=== PATIENT | female | born 1950 | race African-American/Black ===

== ENCOUNTER 2020-08-15 10:37 | Emergency (ER) | payer MEDICARE, BC, SELFPAY ==
[2020-08-15 10:46] VITALS: BP 152/84; PULSE 63; RESP 16; TEMP 36.9; O2SAT 100
--- NOTE | 2020-08-15 11:20 | ED.SKABFB ---
HPI - Skin/Abscess/Foreign Bdy General Chief complaint: Skin/Abscess/Foreign Body Stated complaint: Left Eye swollen/red/bites on neck and chest Time Seen by Provider: 08/15/20 11:03 Source: patient and RN notes reviewed Mode of arrival: ambulatory Limitations: no limitations History of Present Illness HPI narrative: Patient presents today complaining of severely pruritic insect bites to her left eyelid, left neck, and left chest that were sustained last night. She believes that she has bedbugs from her hotel room. Her daughter was able to get pictures of bugs within the mattress. She did take some Benadryl for itching without much relief.Denies any additional symptoms. States she was wearing a nightgown last night. She does not have any bites on her arms, abdomen, or legs. MD complaint: insect bite/sting Related Data Home Medications Medication Instructions Recorded Confirmed atenolol 50 mg PO BID 08/15/20 08/15/20 atorvastatin 20 mg PO DAILY 08/15/20 08/15/20 famotidine [Pepcid] 20 mg PO BID 08/15/20 08/15/20 felodipine 10 mg PO DAILY 08/15/20 08/15/20 hydrochlorothiazide 25 mg PO DAILY 08/15/20 08/15/20 infliximab [Remicade] See Rx Instructions .ROUTE .COMPLEX 08/15/20 08/15/20 potassium chloride 20 meq PO DAILY 08/15/20 08/15/20 Allergies Allergy/AdvReac Type Severity Reaction Status Date / Time levofloxacin [From Levaquin] Allergy Rash Verified 08/15/20 10:56 morphine Allergy Rash Verified 08/15/20 10:56 Sulfa (Sulfonamide Allergy Rash Verified 08/15/20 10:56 Antibiotics) Review of Systems Review of Systems: Narrative: CONSTITUTIONAL: Denies body aches, fever, chills, or sweats. EYES: Denies visual changes, redness, or discharge. ENT: Denies rhinorrhea, congestion, sore throat, or otalgia. CARDIOVASCULAR: Denies chest pain, palpitations, or edema. RESPIRATORY: Denies cough or dyspnea. GASTROINTESTINAL: Denies abdominal pain, nausea, vomiting, or diarrhea. GENITOURINARY: Denies dysuria or hematuria. SKIN: Denies rash, or wounds. +Insect bites MUSCULOSKELETAL: Denies back pain, joint pain, or myalgia. NEUROLOGIC: Denies headache, numbness, tingling, or weakness. PSYCH: Denies depression or anxiety. [facility] Past Medical History Medical History (Updated 08/15/20 @ 11:25 by Erlinda Mendes, [employer], ) Hyperlipidemia Hypertension Rheumatoid arthritis Comments At time of signature, I have reviewed and agree with nursing past medical, surgical, social and family history unless otherwise noted. Please see nursing chart for further information. There is no relevant family history pertinent to the presenting complaint Exam Narrative: Exam Narrative: GENERAL: Well-appearing, well-nourished, and in no acute distress. HEAD: Normocephalic, atraumatic. EYES: EOMI. PERRL. No redness or drainage. Conjunctivae normal. +Moderate swelling of the left upper eyelid with insect bite just under the left eyebrow ENT: Mucous membranes pink and moist. NECK: Normal AROM. Supple. No lymphadenopathy. CHEST: No respiratory distress. EXTREMITIES: Normal range of motion. No edema. SKIN: Warm, dry. Capillary refill normal. Normal skin turgor. Several large slightly erythematous nodules consistent with insect bites to the left neck and left upper chest. NEURO: No focal deficits. Alert and oriented x3. Gait steady. PSYCH: Normal affect. No signs of depression or anxiety. Course Vital Signs Vital signs: Vital Signs Temperature 98.4 F 08/15/20 10:46 Pulse Rate 63 08/15/20 10:46 Respiratory Rate 16 08/15/20 10:46 Blood Pressure 152/84 H 08/15/20 10:46 Pulse Oximetry 100 08/15/20 10:46 Temperature 98.4 F 08/15/20 10:46 Pulse Rate 63 08/15/20 10:46 Respiratory Rate 16 08/15/20 10:46 Blood Pressure 152/84 H 08/15/20 10:46 Pulse Oximetry 100 08/15/20 10:46 Reviewed. Pt has been instructed to follow up with her PCP regarding her elevated blood pressure today. MDM - Skin/Abscess/Foreig
== END 2020-08-15 11:30 | disposition home or self-care (01) ==
PROVIDERS: Emergency Provider Nurse Practitioner
DX: S00.262A Insect bite (nonvenomous) of left eyelid and periocular area, initial encounter (principal); S10.96XA Insect bite of unspecified part of neck, initial encounter; S20.362A Insect bite (nonvenomous) of left front wall of thorax, initial encounter; W57.XXXA Bitten or stung by nonvenomous insect and other nonvenomous arthropods, initial encounter; E78.5 Hyperlipidemia, unspecified; I10 Essential (primary) hypertension; M06.9 Rheumatoid arthritis, unspecified
CPT/HCPCS: 99213; G0463